=== PATIENT | female | born 1965 | race Caucasian/White ===

== ENCOUNTER 2016-08-09 03:37 | Inpatient (IN) | payer MEDICAID ==
[~2016-08-09] VITALS: Ht 165.1 cm; Wt 78.0 kg
[2016-08-09] VITALS (10 sets, daily range): BP systolic 92–126; BP diastolic 48–79; PULSE 62–113; RESP 16–24; TEMP 96.8–103.5; O2SAT 93–97
--- NOTE | 2016-08-09 05:25 | NUR ---
notes received the pt from [facility] ,pt is a/a/ox4 wolof speaking only.daughter coleen is at the bedside.pt stated that her back pain is alot less than 2 hours ago.vs taken pt with a fever of 102.8.RN is at the bedside.pt with #18 angio intact to rt ac.pt was [facility].will call dr villa for orders.
--- NOTE | 2016-08-09 06:02 | NUR ---
PAGED DR Demetrio MOJICA [phone], NEHA SANCHEZ.
--- NOTE | 2016-08-09 06:29 | NUR ---
notes call #[address] villa.
--- NOTE | 2016-08-09 06:35 | NUR ---
PAGED PAGED DR YUNIOR Atkinson SP WITH DEBO. PAGED # 2.
--- NOTE | 2016-08-09 06:39 | NUR ---
notes dr villa called back and stated the pt will be ms in pt and that he will put the orders in the computer.was told of the pts fever of 102.8
[2016-08-09] MEDS ORDERED: HYDROcodone/ACETAMIN 5-325 MG TAB (NORCO/ VICODIN) PO PRN (06:45)
[2016-08-09] MEDS ORDERED: LORazepam 2 MG/ML VIAL IVP PRN (06:45)
[2016-08-09] MEDS ORDERED: MORPHINE 2 MG/ML INJ. SYRINGE IVP PRN (06:45)
[2016-08-09] MEDS ORDERED: ONDANSETRON HCL 4 MG/2 ML VIAL IVP PRN (06:45)
[2016-08-09] MEDS ORDERED: ACETAMINOPHEN 325 MG TABLET PO PRN (06:45)
--- NOTE | 2016-08-09 06:56 | NUR ---
notes,[facility] nurse calero stated the pt received 3ooo cc bolus in the er
--- NOTE | 2016-08-09 07:12 | NUR ---
CONSULT ID UTI DR RUIZ [id number] S/W LEEANN EXCHANGE @ [phone]
--- NOTE | 2016-08-09 07:27 | NUR ---
AM Rounds: Pt sitting semi-fowlers in bed. No acute signs of distress noted. Pt breathing even and unlabored on room air. Patient denies pain. Patient's daughter at bedside. Call light in reach. Continue to monitor.
[2016-08-09] MEDS: D5NS 1,000 ML IV SCH ×2 (08:40→18:26)
[2016-08-09] MEDS: HYDROcodone/ACETAMIN 10-325 MG TAB PO PRN ×2 (08:40→15:01)
--- NOTE | 2016-08-09 08:52 | NUR ---
CONSULT UROLOGY RENAL STONES DR CALDERON [phone] S/W DANTE ROGER @ [phone]
[2016-08-09] MEDS: LEVOFLOXACIN 500 MG/D5W 100 ML IV SCH (09:27)
--- NOTE | 2016-08-09 09:30 | NUR ---
RN Rounds: AM meds given per MD order. Pt tolerates well. Patient denies pain. Call light in reach. Continue to monitor pt closely.
--- NOTE | 2016-08-09 11:57 | NUR ---
Rounds: Pt sitting semi-fowlers in bed. No acute signs of distress noted. IV intact and infusing fluids well to RUE with no redness or swelling noted to site. Pt denies pain at this time, pt remains afebrile. Call light in reach. Pt is able to make needs known. Daughter at bedside. No other needs noted. Continue to monitor.
--- NOTE | 2016-08-09 13:01 | NUR ---
Page Dr. Magaña: Page Dr. Magñaa to make aware that Dr. Hansen does not accept the patient's insurance. Dr. Magaña states "Yeah we'll probably have to transfer her out". Charge NurseLeonie called spring encaserDanica to make her aware.
--- NOTE | 2016-08-09 15:22 | NUR ---
Case mgt: I was made aware by Ashwini the order for urology consult and that Dr. Hansen declined consult--I have spoken with RIBBON SWEATBAND OPERATOR and am calling Dr. Bryon Hansen to s/w him regarding consult--I spoke with office staff (Alden) at Dr. Hansen's office. She said Dr. Hansen currently in OR and she will page him my message to call me. TYSON RN Addendum: 08/09/16 at 1633 by Ashwini San RN >> Contacted FRANCIE Rabago at [facility] # [phone] requesting pt. transferring to [facility] no Urologist available for consultation. [facility] requested whether the pt. can f/u as outpt. Dr. Magaña made aware and will assess the pt. this evening. The . concerns that the pt. still has fever and type of iv ABX. He might discharge the pt. if medically clear for the outpt Urology cons.-- Verbal update about the pt's status and faxed [facility] ER notes to [facility] per request. Eunice, and SERGE Catalan made aware.
--- NOTE | 2016-08-09 15:43 | NUR ---
Rounds: Pt medicated for chills, pain, and fever. Pt tolerates PO med well. Patient's family at bedside. Call light in reach. Cooling packs placed to axillary region, back of neck. Continue to monitor.
--- NOTE | 2016-08-09 16:00 | NUR ---
Case mgt: Rec'd call from Dr. Hansen to discuss consult and DATAPOWER DEVELOPER input-I read Dr. Hansen the CT report from [facility] which indicates 6mm stone left distal ureter w/mild hydro and several tiny bilateral renal stones-cannot r/o pyelonephritis--He indicates pt will need surgery even if he did surgery, he has to be able to f/u with pt and this medical group cancelled his urology group from their health plan and he wouldn't be able to get authorization, so therefore, he cannot consult on pt--Ashwini called Gem at [facility] and explained pt will most likely need transfer to contracted hospital for urology intervention if pt doesn't clear medically. Attending, Dr. Demetrio Magaña, will round today and make decision. I have informed nurse Alayna and charge nurse Leonie to obtain transfer order from Dr. Magaña. TYSON RN
--- NOTE | 2016-08-09 17:20 | NUR ---
Dr. Uriostegui Called: Dr. Uriostegui called, aware that Dr. Hansen was called for consult but that he will be unable to see patient due to insurance. He is also aware that Dr. Magaña will come by to see patient tonight. Dr. Uriostegui aware of results of BMP, CBC, and KUB done at [place]. Dr. Uriostegui states "Call Dr. Magaña to see about transfer".
--- NOTE | 2016-08-09 18:28 | NUR ---
Dr. Velarde Return Page/Closing Note: Dr. Magaña return page, asked if he wants to transfer patient to [facility]. He is also aware that Dr. Uriostegui called me asnd asked to make the patient NPO. Dr. Magaña states "I'm coming to see the patient". No new orders noted for transfer. Patient is aware that she is NPO at this time--nothing to eat or drink including water. Patient medicated for nausea, pt denies nausea at this time. Pt also denies pain at this time. Pt remains afebrile at 99.1 F. No other needs noted at this time. Call light in reach. Family at bedside. Endorse plan of care to NOC RN.
--- NOTE | 2016-08-09 19:30 | NUR ---
notes received the pt from the day nurse family at the bedside ,pt denies pain and discomfort.dr martinez spoke with dr villa who is here on the phone.iv infusing well to rt ac ,no redness or swelling noted.call light within reach.safety measures in progress. continue to monitor.
--- NOTE | 2016-08-09 21:14 | NUR ---
notes pt resting but was assisted to the bathroom ,voided and assisted back to bed ,family remains at the bedside.
--- NOTE | 2016-08-09 23:34 | NUR ---
NOTES PT SLEEPING ,NO DISTRESS NOTED CALL LIGHT WITHIN REACH.CONTINUE TO MONITOR.
--- NOTE | 2016-08-10 01:38 | NUR ---
NOTES PT SLEEPING,CALL LIGHT WITHIN REACH CONTINUE TO MONITOR
--- NOTE | 2016-08-10 01:41 | NUR ---
NOTES PT SLEEPING,NO DISTRESS NOTED ,FAMILY MEMBER AT THE BEDSIDE.
[2016-08-10] MEDS: D5NS 1,000 ML IV SCH ×2 (03:38→12:41)
--- NOTE | 2016-08-10 03:39 | NUR ---
NOTES PT AWAKE ALERT.NO C/O PAIN WHEN ASKED.CONTINUE TO MONITOR.
--- NOTE | 2016-08-10 05:30 | NUR ---
NOTES PT SLEEPING,CALL LIGHT WITHIN REACH.
[2016-08-10 06:24] LABS: BASOPHILS % (AUTO) 0.3 % (0.0-2.0); HEMATOCRIT 29.1 % (36-48); HEMOGLOBIN 9.5 g/dL (12.0-16.0); LYMPHOCYTES # (AUTO) 2.3 K/uL (1.0-5.5); LYMPHOCYTES % (AUTO) 15.8 % (20.5-51.5); MEAN CORPUSCULAR HEMOGLOBIN 28 pg (27-31); MEAN CORPUSCULAR HGB CONC 33 % (32-36); MEAN CORPUSCULAR VOLUME 87 fL (79.0-98.0); MONOCYTES # (AUTO) 1.6 K/uL (0.0-1.0); NEUTROPHILS # (AUTO) 10.5 K/uL (1.8-7.7); PLATELET COUNT (AUTO) 264 K/uL (130-430); RED BLOOD CELL COUNT(AUTO) 3.36 MIL/uL (4.2-6.2); RED CELL DISTRIBUTION WIDTH 13.4 % (9.0-15.0); WHITE BLOOD COUNT (AUTO) 14.4 K/uL (4.8-10.8)
--- NOTE | 2016-08-10 06:27 | NUR ---
CLOSING NOTES PT SLEEPING ,WAS AWAKEN BY THE IV ALARM.NO C/O PAIN WHEN ASKED,WILL ENDORSE THE CARE OF THE PT TO THE DAY NURSE.
[2016-08-10 06:35] LABS: CALCIUM 7.5 mg/dL (8.4-11.0); CREATININE 0.88 mg/dL (0.55-1.30); POTASSIUM 3.6 mmol/L (3.5-5.1)
[2016-08-10 07:14] LABS: C-REACTIVE PROTEIN QUANT 14.6 mg/dL (0-0.5)
--- NOTE | 2016-08-10 07:52 | NUR ---
AM Rounds: Received pt laying flat in bed and sleeping. Breathing even and unlabored on room air. No acute signs of distress noted at this time. IV intact to RUE with no redness or swelling to site. Call light in reach. Continue to monitor pt closely.
[2016-08-10 08:25] VITALS: BP 96/55; PULSE 83; RESP 16; TEMP 99; O2SAT 97
[2016-08-10 08:53] LABS: ERYTHROCYTE SEDIMENTATION RATE 28 MM/HR (0-20)
[2016-08-10] MEDS: LEVOFLOXACIN 500 MG/D5W 100 ML IV SCH (09:17)
--- NOTE | 2016-08-10 09:20 | NUR ---
RN Rounds: AM meds given per MD order. No acute signs of distress noted. Pt remains afebrile and denies pain at this time. Call light in reach. Pt verbalizes understanding of need for UA. Icelandic speaking nurse at bedside for translation. No other needs noted at this time. Continue to monitor.
[2016-08-10 10:48] LABS: NEUTROPHILS % (AUTO) 72.9 % (40.0-70.0)
--- NOTE | 2016-08-10 11:16 | NUR ---
DC PLANNING: F/U with Gem regarding transfer the pt. to ins. network. The pt. is accepting at [facility] by dr. Limon and is pending bed assignment. Dr. Uriostegui made aware. ( changed pmd yesterday per contracted insurance). The pt. and dtrSerene made aware and agreed with the POC. >> Faxed transfer order , HP and DC summary to [facility] per request.fax# [phone]. Addendum: 08/10/16 at 1143 by Iman REYNA Ordered Radiology Cd. Placed transportation packet with CD in nurses station. Addendum: 08/10/16 at 1324 by Ashwini San RN >> Received bed assignment from Gem, room # 518 at [facility] address: [address]. RN to report # [phone]. Ambulance arranged by Gem with [facility], BLS status, ETA between 3 and 4 pm. SERGE Catalan made aware. Per Gem, she already speaks with pt. and dtr Serene about the transferring location and poultry picker time.
--- NOTE | 2016-08-10 11:49 | NUR ---
Rounds: Pt sitting semi-fowlers in bed. No acute signs of distress noted at this time. Pt remains afebrile. Denies pain. Call light in reach. Dr. Lucero here to see pt. New orders noted. Continue to monitor.
[2016-08-10] MEDS: PIPERACILLIN/TAZO 3.375/DEX-IS 50 ML IV SCH ×2 (12:00→12:37)
[2016-08-10 12:09] VITALS: BP 104/54; PULSE 85; RESP 16; TEMP 99.6; O2SAT 97
[2016-08-10 13:34] LABS: BILIRUBIN,URINE NEGATIVE (NEGATIVE); BLOOD, URINE 2+ (NEGATIVE); CLARITY/URINE CLEAR (CLEAR); COLOR,URINE YELLOW (YELLOW); GLUCOSE,URINE NEGATIVE (NEGATIVE); KETONES,URINE NEGATIVE (NEGATIVE); LEUKOCYTE ESTERASE ,URINE NEGATIVE (NEGATIVE); NITRITE, URINE NEGATIVE (NEGATIVE); PH,URINE 5.5 (5.0-8.0); PROTEIN URINE NEGATIVE (NEGATIVE); UROBILINOGEN,URINE 0.2 (0.2-1.0)
--- NOTE | 2016-08-10 13:36 | NUR ---
Rounds: Pt sleeping in bed. No acute signs of distress noted. IV intact to RUE with no redness or swelling noted to site. Call light in reach. Continue to monitor pt closely.
[2016-08-10 13:56] LABS: BACTERIA,URINE FEW /HPF (None Seen); MUCUS,URINE 1+ /LPF (None Seen); WBC,URINE 0-3 /HPF (0-3)
[2016-08-10 15:13] VITALS: BP 95/56; PULSE 74; RESP 16; TEMP 98.9; O2SAT 92
--- NOTE | 2016-08-10 15:35 | NUR ---
PT TRANSFERRED Report given to Miri at [facility]. Transfer packet with Transfer Orders and Medication Reconciliation form given to EMT with report. Exitcare provided. [facility] ID band removed, replaced with ID band with pt's name and . IV catheter removed, intact and dressing applied, no active bleeding. All belongings sent with patient. Patient left floor via gurney escorted by EMT in no distress.
[2016-08-10] MEDS ORDERED: LACTOBACILLUS RHAMNOSUS GG 1 CAP CAPSULE PO SCH (21:00)
== END 2016-08-10 16:35 | disposition short-term general hospital (02) | DRG 463 ==
LOC: SMU 05:25
PROVIDERS: ADMIT Preventive Medicine Preventive Medicine/Occupational Environmental Medicine; ATTEND Preventive Medicine Preventive Medicine/Occupational Environmental Medicine
DX: N10 Acute pyelonephritis (principal); N20.0 Calculus of kidney; E66.9 Obesity, unspecified; R31.9 Hematuria, unspecified; Z68.28 Body mass index [BMI] 28.0-28.9, adult
CPT/HCPCS: 36415; 80048; 81000-TC; 83605; 85025; 85651-TC; 86140; 87040-TC; 87086; J1956; J2405; J2543; J7042